=== PATIENT | male | born 1945 | race Caucasian/White ===

== ENCOUNTER 2024-03-04 11:18 | Day surgery (SDC) | payer MEDICARE, OTHER ==
[~2024-03-04] VITALS: Ht 180.3 cm; Wt 70.8 kg
[~2024-03-04 11:18] MED LIST: ATOR20 PO; AZAT50 PO; FLONASE ALLERG9.9 M2; LOSA50 PO; Lactated Ringer's 1,000 ML IV ONE; TRAM50; TRAZ100 PO; propofoL 50 ML IV ONE
[2024-03-04] MEDS ORDERED: ERGO400 (12:01)
[2024-03-04] MEDS ORDERED: MUPIROCIN1 G1 (12:02)
[2024-03-04] MEDS ORDERED: Lactated Ringer's 1,000 ML IV ONE (12:34)
== END 2024-03-04 13:52 | disposition home or self-care (01) ==
LOC: ORSCSDS 11:18
PROVIDERS: Internal Medicine Gastroenterology
PROC: 0DBE8ZX Excision of Large Intestine, Via Natural or Artificial Opening Endoscopic, Diagnostic (ICD-10-PCS; principal; 2024-03-04 13:00)
DX: K51.90 Ulcerative colitis, unspecified, without complications (principal); Z87.891 Personal history of nicotine dependence; Z79.899 Other long term (current) drug therapy
CPT/HCPCS: 88305; J2704; J7120